=== PATIENT | female | born 1945 | race Caucasian/White ===

== ENCOUNTER 2017-07-30 10:30 | Outpatient (RCR) | payer MEDICARE, BC ==
[2017-07-29 13:08] VITALS: BP 157/77
[2017-07-29 13:22] LABS: PLATELET COUNT, AUTOMATED 222 K/uL (150-450)
[~2017-07-30 10:30] MED LIST: ACE3 PO; ANAS1TAB35 PO; AZIT-17 PO; CHOL10005 PO; KET10 PO; LOR5/325 PO; PER PO; WARF4TAB47 PO
[2017-07-30 10:42] VITALS: BP 156/72
--- NOTE | 2017-07-30 10:45 | ONC Progress Note - NP.Halsey ---
Patient History Date of Service Jul 30, 2017 Reason For Visit/HPI Patient called the clinic yesterday to report that she was having increasing fatigue and lack of interest in any activity. She was not sure that she felt particularly depressed but certainly has had a significant decrease in activity. She was concerned that possibly her changes were related to current medication with Arimidex. Over the phone I discussed that I would like to see her but prior to that I would like to have a TSH result if one had not been done recently by primary care provider. Patient called her primary and it was noted that it has not been completed so she she came to the cancer center yesterday and had labs drawn. Patient is here today for follow-up of labs and to review her decrease of activity and possible relation with her aromatase inhibitor. TSH was within normal limits as well as CBC and her chemistry panel. Patient shows that she has given up volleyball because it is too difficult to separate the poles up, pickle ball because she just doesn't feel like going, walking with her friend because it either Windy, or cold, going out on Wednesday nights to the [employer] club as she previously did because she just is not interested, and several other activities. She has gained approximately 10 pounds thought to be related to inactivity, which is depressing because she worked very hard to lose initial 60 pounds and to keep it off. She has discussed these issues with multiple friends. She shares that previously to get the weight off she was on a stimulant , and questions if she could try this again. I encouraged her to make some other changes 1st such as increasing her activity and holding the Arimidex for 2 weeks to see if there are changes. We also discussed possibly changing her Arimidex to Femara to see if she might have better toleration. In review of my notes patient complained of fatigue in February and this has been ongoing. We also discussed possibly starting a low dose Effexor to see if it would make changes. Problem List (1) Fatigue (2) Breast cancer, left (3) FH: esophageal cancer (4) FH: uterine cancer Oncology History Ms Rivero is a healthy female who was diagnosed at age 71 with early stage, node-negative, ER positive, HER2/josep normal left-sided breast cancer. Patient has transferred her care to Dr. Watkins from Dr. Kenyon who has transitioned back to [facility]. Her cancer was discovered in September on routine mammogram findings during a workup for kidney transplant donation to her . 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 It invades into the adipose tissue and skeletal muscle and she underwent a lumpectomy by Dr. Hester, requiring some skeletal muscle being taken. Final pathology showed poorly differentiated invasive ductal carcinoma. Two sentinel lymph nodes were negative. This was a pT1 pN0 MX. Ki-67 was high at 23. HER2/josep was equivocal, but then negative by FISH. Fortunately, her Oncotype DX score was extremely low at 8, in the low risk category. Patient was started on external beam radiotherapy to the breast tissue on 11/10/2016 and completed treatment on 12/28/2016 to a therapeutic dose of 6040 cGy completing 33 out of 33 treatments. Patient was started on Arimidex after completion of radiation therapy December 2016. She is scheduled to complete at least 5 years although the current recommendations are leaning towards 10 years at this time. Adjuvant radiotherapy was completed 12/28/2016 to a therapeutic dose of 6040 cGy with completion of 33 out of 33 treatments. Bone density on 03/10/2017 was normal Yearly mammograms are recommended, patient is due in August Medical History Family History: FH: esophageal cancer FATHER FH: uterine cancer Paternal grandmother Psychosocial History Social History She is and retired Alcohol History She denies abuse Smoking History: No Medications and Allergies Active Scripts Letrozole (LETROZOLE) 2.5 Mg Tablet, 2.5 MG PO DAILY for 30 Days, #30 TAB 9 Refills Prov:MARJORIE LEE BODY MECHANIC APPRENTICE-BC, ONC 07/30/17 Azithromycin (Z-PACK) 250 Mg Tablet, 0 PO QDAY, #6 DOSE-PACK Prov:MARJORIE LEE BODY MECHANIC APPRENTICE-BC, ONC 03/16/17 Hydrocodone Bit/Acetaminophen (HYDROCODON-ACETAMINOPHEN 5-325) 1 Each Tablet, 1 EACH PO Q4-6H Y for PAIN, #30 TAB Prov:CONRAD HESTER MD 10/06/16 Reported Medications Cholecalciferol (Vitamin D3) (VITAMIN D3) 1,000 Unit Tablet, 92848 UNIT PO QWEEKF, TAB 01/26/17 Cholecalciferol (Vitamin D3) (VITAMIN D3) 1,000 Unit Tablet, 3000 UNIT PO DAILY , TAB 01/26/17 Acetaminophen/Codeine (TYLENOL #3 (OR EQUIV)) 1 Ea Tab, 1 EA PO PRN, TAB 10/13/16 Discontinued Scripts Anastrozole (ARIMIDEX) 1 Mg Tablet, 1 MG PO DAILY, #90 TAB 3 Refills Prov:MARJORIE LEE BODY MECHANIC APPRENTICE-BC, ONC 12/14/16 Allergies: Coded Allergies: Penicillins (Verified Allergy, Mild, 05/02/14) cephalexin (Verified Allergy, Mild, 05/02/14) sulfamethoxazole (Verified Allergy, Mild, 05/02/14) trimethoprim (Verified Allergy, Mild, 05/02/14) Review of System/Physical Exam Review of Systems All Systems Reviewed/Normal: Yes, Except as Noted Hematologic: Positive for Fatigue Psychiatric: Anxiety (patient that she does have some anxiety regarding the the upcoming mammogram in August because of her most recent mammogram been reported in a letter to her house that it was abnormal with concerns. In review the mammogram had no real concern but was noted for thickening status post radiation therapy giving it a BI-RADS 3), Depression Physical Exam Vital Signs Temperature: 97.3 Pulse: 50 BP Systolic: 157 BP Diastolic: 77 Respiratory Rate: 16 O2 SAT: 97 O2 Delivery: Height (inches) 65.00 Weight lb: 168 Weight oz: Weight Kg (Stef): Pain: 0 ECOG Score: 1 General: Stable, Well Developed, Well Nourished, Not In Acute Distress Psychiatric: Mood appears normal, Affect appears normal, Other (patient does share some activities that could suggest low grade depression.) Diagnostic Studies Diagnostic Studies Laboratory Laboratory Tests 07/29/17 13:00 Laboratory Tests 07/29/17 13:00: White Blood Count 5.5, Red Blood Count 5.15, Hemoglobin 15.7, Hematocrit 46.5, Mean Corpuscular Volume 90.2, Mean Corpuscular Hemoglobin 30.5, Mean Corpuscular Hemoglobin Concent 33.8, Red Cell Distribution Width 13.9, Platelet Count 222, Mean Platelet Volume 7.7, Neutrophils (%) (Auto) 59.1, Lymphocytes (% ) (Auto) 29.6, Monocytes (%) (Auto) 9.0, Eosinophils (%) (Auto) 1.8, Basophils ( %) (Auto) 0.5, Nucleated RBC Relative Count (auto) 0.1, Neutrophils # (Auto) 3.3 , Lymphocytes # (Auto) 1.6, Monocytes # (Auto) 0.5, Eosinophils # (Auto) 0.1, Basophils # (Auto) 0.0, Nucleated RBC Absolute Count (auto) 0.00, Sodium Level 140, Potassium Level 3.9, Chloride Level 103, Carbon Dioxide Level 27, Blood Urea Nitrogen 19, Creatinine 0.80, Glomerular Filtration Rate Calc > 60.0, Random Glucose 87, Calcium Level 9.6, Total Bilirubin 0.5, Aspartate Amino Transf (AST/SGOT) 25, Alanine Aminotransferase (ALT/SGPT) 34, Alkaline Phosphatase 96, Total Protein 7.1, Albumin 4.3, Thyroid Stimulating Hormone (TSH ) 1.45 Assessment and Plan Assessment & Plan Patient is a pleasant 72-year-old female with early stage, node negative, ER positive, HER2/josep normal left-sided breast cancer. Patient is status post external beam radiotherapy to the left breast and axilla. Patient completed treatment between 11/10/2016 and 12/28/2016 to a therapeutic dose of 6040 cGy completing 33 out of 33 treatments with minimal side effects that have resolved. Patient was started on Arimidex post completion of radiation therapy in January 2017. Current recommendation is 5+ years. Bone density completed in February was within normal limits Labs reviewed today are completely within normal limits. TSH is 1.45 Patient is scheduled for a diagnostic mammogram August and will follow with Dr. Galvan, radiation oncology to review. Patient is presenting with increased fatigue and lack of interest in previous activities. We spent essentially the whole office visit reviewing side effects of aromatase inhibitors, indications of depression, and plan of care. Patient will currently stop her Arimidex for 2 weeks and we'll give me a call on WednesdayAugust 13 to report how she is feeling. I will send a prescription to [facility] pharmacy for Catie with the thought that we might change her medication to see if she has better toleration. This also allows time for prior authorization if it is needed and to let the patient know what her ail-as-siffiy expense will be. If it is not approved or the bdi-ds-ahuuwy expense is significantly different from Arimidex, we could also try Aromasin. Patient agreed with this plan of care. She will also try to restart some of her activities such as renewing her membership at the [employer] so she can restart playing pickle ball. She is also scheduled to start dance classes 3 days a week and we'll make an effort to be present at each one. Plan: Stop Arimidex and send prescription to [facility] for Catie Patient to be contacted in 2 weeks, Wednesday, August 13 to discuss how she is feeling. Mammogram is scheduled for September 10. Patient will be contacted with results. Patient will follow in 4 months with CBC D, CMP and follow with . I personally spent a total of 20 minutes. Of that 15 minutes was counseling/ coordination of patient's care. See my note above for details. Copies to: OMI ELLIS MD, NANCY J BODY MECHANIC APPRENTICE-BC, ONC Jul 30, 2017 10:45
[2017-07-30] MEDS ORDERED: LETR2.5T4 PO (11:27)
[2017-08-31] MEDS ORDERED: VENL37.53 PO (14:22)
--- NOTE | 2017-09-13 10:18 | RADIOLOGY IMAGING REPORT ---
FACILITY: [facility] [place] PATIENT NAME: REJI CASTRO : [id number] MR: [id number] V: [id number] EXAM DATE: [id number] ORDERING PHYSICIAN: MARJORIE LEE TECHNOLOGIST: Saritha Yang PROCEDURE:BILATERAL DIAGNOSTIC DIGITAL MAMMOGRAM WITH CAD ASSISTED INTERPRETATION AND 3D BREAST TOMOSYNTHESIS. COMPARISON:Prior mammograms dated 03/10/17, 09/25/16, 09/24/16 and 09/09/16. INDICATIONS:PRIOR HISTORY OF LEFT BREAST CANCER. FINDINGS: A small amount of fibroglandular tissue is seen throughout the breasts. Again noted is an area of architectural distortion and scarring in the upper outer quadrant of the left breast in zone 3 in the site of the previous lumpectomy where there is an adjacent surgical clip. There is increased density throughout the left breast and skin thickening consistent with post-radiation changes. There is no evidence of malignant appearing mass or calcification in either breast at this time. DIAGNOSTIC CATEGORY 2--BENIGN FINDING. RECOMMENDATIONS: ROUTINE MAMMOGRAM AND CLINICAL EVALUATION. IMPRESSION: BI-RADS 2: No significant abnormality identified at this time. Dictated by: Anahi Wiseman M.D. on 09/10/2017 at 15:39 Transcribed by: MELY on 09/12/2017 at 17:14 Approved by: Anahi Wiseman M.D. on 09/13/2017 at 9:49 [facility]
== END 2017-10-27 ==
LOC: ONC 10:30
PROVIDERS: ATTEND Nurse Practitioner Family
DX: Z85.3 Personal history of malignant neoplasm of breast (principal); E55.9 Vitamin D deficiency, unspecified; Z92.3 Personal history of irradiation; R53.83 Other fatigue; Z79.899 Other long term (current) drug therapy
CPT/HCPCS: 36415; 77062; 84443; 85025; G0204; G0463; 77066; 82040; 82247; 82310; 82374; 82435; 82565; 82947; 84075; 84132; 84155; 84295; 84450; 84460; 84520; 99212

== ENCOUNTER 2017-11-15 09:24 | Outpatient (RCR) | payer MEDICARE, BC ==
[2017-11-12 10:41] LABS: PLATELET COUNT, AUTOMATED 189 K/uL (150-450)
[~2017-11-15 09:24] MED LIST changes: +LETR2.5T4 PO; +VENL37.53 PO
[2017-11-15 09:31] VITALS: BP 129/68
--- NOTE | 2017-11-16 16:40 | ONCOLOGY FOLLOW UP NOTE ---
EVENT DATE: November 15, 2016 CHIEF COMPLAINT/REASON FOR VISIT Ms. Rivero is a pleasant 72-year-old female, with stage I ER/AZ positive breast cancer, here for followup on Femara. HISTORY OF PRESENT ILLNESS Rhianna returns. Overall she is feeling quite well. Her cancer was discovered in September 2016 on routine mammography during a workup for a kidney transplant donation to her . 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 Her Oncotype DX score was extremely low at 8. This was a pT1 pN0 M0 tumor. The tumor did invade adipose tissue as well as skeletal muscle, and she underwent a successful lumpectomy with some skeletal muscle being taken. She received radiation as well given the chest wall involvement. She started Arimidex, but had considerable side effects with fatigue, anhedonia and depression. She switched to Femara in approximately July 2017 and is tolerating this extremely well. MEDICATIONS 1. Femara. 2. Venlafaxine. 3. Calcium and vitamin D. 4. Vicodin as needed for pain. PAST MEDICAL HISTORY Stage I left-sided breast cancer. FAMILY HISTORY Remarkable for uterine and esophageal cancer. The uterine cancer as in a maternal grandmother. SOCIAL HISTORY Patient is and takes care of her with Parkinson's disease. Nonsmoker. REVIEW OF SYSTEMS CONSTITUTIONAL: No issues with Femara. HEENT: No headache or visual changes. CARDIOVASCULAR: No chest pain, dyspnea on exertion or edema. RESPIRATORY: No shortness of breath, wheeze, cough. GASTROINTESTINAL: No nausea, vomiting, diarrhea or constipation. GENITOURINARY: No dysuria or hematuria. BREASTS: No concerning lumps or bumps ENDOCRINE: No heat or cold intolerance. PSYCHIATRIC: No anxiety or depression currently. She did have some anhedonia with her first aromatase inhibitor (Arimidex). IMMUNOLOGIC: No issues with infection. HEMATOLOGIC/LYMPHATIC: No concerning lumps or bumps. The remainder of the 14-point review of systems is otherwise negative. PHYSICAL EXAMINATION VITAL SIGNS: Blood pressure 129/68, pulse 48, respiratory rate 16, temperature 96.7 Fahrenheit, oxygen saturation 96% on room air. Pain 0/10, fatigue 0/10. GENERAL: In stable condition, resting comfortably in the chair. HEENT: Normocephalic, atraumatic. RESPIRATORY: No respiratory distress. BREASTS: Exam deferred today. EXTREMITIES: No clubbing, cyanosis or edema. SKIN: No concerning rashes. Remainder of physical exam otherwise unremarkable. IMPRESSION AND PLAN Rhianna is a very pleasant 72-year-old female with early stage node negative ER/ AZ positive breast cancer of the left breast. We finished radiation. She did not tolerate Arimidex and we switched to Femara in approximately July of 2017. She is tolerating this extremely well. She notes no symptoms from it whatsoever. We discussed the consideration of taking it beyond five years to 10 years. We will make a decision at that time based on her side effects from it. Overall she is tolerating it well currently. I answered all of her many questions. Billing: Return visit level 4. Total time 30 minutes, counseling time 20. MTDD
== END 2017-12-15 09:27 | disposition home or self-care (01) ==
LOC: ONC 09:24
PROVIDERS: ATTEND Nurse Practitioner Family
DX: C50.912 Malignant neoplasm of unspecified site of left female breast (principal); Z17.1 Estrogen receptor negative status [ER-]; Z92.3 Personal history of irradiation; R53.83 Other fatigue; R45.84 Anhedonia
CPT/HCPCS: 36415; 85025; G0463; 82040; 82247; 82310; 82374; 82435; 82565; 82947; 84075; 84132; 84155; 84295; 84450; 84460; 84520; 99212

== ENCOUNTER → 2017-11-25 | Outpatient (CLI) | payer MEDICARE, BC ==
--- NOTE | 2017-11-25 14:24 | EKG ---
FACILITY: [facility] [place] PATIENT NAME: REJI CASTRO : [id number] MR: [id number] V: [id number] EXAM DATE: ORDERING PHYSICIAN: OMI LE TECHNOLOGIST: ERNA Joshua Reason : PREOP-EYE DUCT Blood Pressure : / mmHG Vent. Rate : 058 BPM Atrial Rate : 058 BPM P-R Int : 202 ms QRS Dur : 158 ms QT Int : 452 ms P-R-T Axes : 051 -56 -03 degrees QTc Int : 443 ms Sinus bradycardia with sinus arrhythmia Right bundle branch block Left anterior fascicular block Bifascicular block Abnormal ECG When compared with ECG of 06-OCT-2016 07:58, No significant change was found Referred By: REY Confirmed By:
== END ==
LOC: RESP 14:15
PROVIDERS: ATTEND Anesthesiology
DX: Z01.810 Encounter for preprocedural cardiovascular examination (principal); H04.203 Unspecified epiphora, bilateral; H04.19 Other specified disorders of lacrimal gland; R94.31 Abnormal electrocardiogram [ECG] [EKG]
CPT/HCPCS: 93005

== ENCOUNTER → 2018-03-10 | Outpatient (CLI) | payer MEDICARE, BC ==
--- NOTE | 2018-03-10 14:29 | RADIOLOGY IMAGING REPORT ---
FACILITY: [facility] - [place] PATIENT NAME: Ismael Rivero : 1945 MR: [id number] V: [id number] EXAM DATE: ORDERING PHYSICIAN: MARJORIE LEE TECHNOLOGIST: Location: [facility] [place] Patient: Ismael Rivero : 1945 Visit/Account:[id number] Date of Sevice: 03/10/2018 DEXA Scan Clinical history: Postmenopausal, history of cancer. Comparison: DEXA scan from 03/10/2017. LUMBAR SPINE: The bone mineral density (BMD) measured from L1-L4 correlates with a Z-score of 2.5 and a T-score of 1.1 which is Normal as defined by the World Health Organization. The corresponding risk of fracture in the lumbar spine is Not increased compared with a young adult reference population. This value mcmillan s decrease by 0.5 % since the prior study. More than 5% change is considered significant. HIP: Bone mineral density (BMD) measured in the LEFT total hip region correlates with a Z-score 0.9 and a T-score of -0.4 which is normal as defined by the World Health Organization. The corresponding risk of fracture in the hip is Not i ncreased compared to a young adult reference population. This value has decrease by 1.8 % since the p rior study. More than 5% change is considered significant. T score left femoral neck -0.3 Bone mineral density (BMD) measured in the Femoral Neck region measures 1.000 g/cm?. IMPRESSION: 1. Lumbar spine: Normal. There has been 0.5% decrease in the bone mineral density since the previou s exam. 2. Left Total Hip: Normal. There has been 1.8% decrease in the bone mineral density since the previ ous exam. 3. Femoral Neck: Bone Mineral Density is 1.000 g/cm? The next DEXA scan of this patient should include the following sites: L1-L4 and the left hip. FRAX? WHO Fracture Risk Assessment Tool link: <http://www.shef.ac.uk/FRAX/tool.jsp?locationValue=9> PLEASE NOTE: 1) The World Health Organization defines low BMD as follows: T-score Normal > -1 Osteopenia < -1 and > -2.5 Osteoporosis < -2.5 without fractures Established osteoporosis < -2.5 with fractures 2) In general, you may wish to consider: Diagnosis Treatment Follow-up DEXA Normal BMD Prevention 2-3 years Osteopenia Prevention/therapy 1-2 years Osteoporosis Therapy Yearly 3) Fracture risk estimated from the T-score is more accurate for vertebral fractures (often spontane ous) than for hip fractures. Report Dictated By: Anahi Wiseman MD at 03/10/2018 2:21 PM Report E-Signed By: Anahi Wiseman MD at 03/10/2018 2:22 PM WSN:[email or web address]
== END ==
LOC: MAMO 13:24
PROVIDERS: ATTEND Nurse Practitioner Family
DX: C50.912 Malignant neoplasm of unspecified site of left female breast (principal); Z17.0 Estrogen receptor positive status [ER+]; Z85.3 Personal history of malignant neoplasm of breast; C80.1 Malignant (primary) neoplasm, unspecified; Z78.0 Asymptomatic menopausal state
CPT/HCPCS: 77080

== ENCOUNTER 2018-05-16 12:27 | Outpatient (RCR) | payer MEDICARE, BC ==
[2018-05-11 11:20] VITALS: BP 136/82
[2018-05-11 11:26] LABS: PLATELET COUNT, AUTOMATED 197 K/uL (150-450)
[2018-05-16] MEDS ORDERED: LETPT GT (12:33)
[2018-05-16 12:34] VITALS: BP 140/80
--- NOTE | 2018-05-17 23:03 | ONCOLOGY FOLLOW UP NOTE ---
EVENT DATE: May 16, 2018 CHIEF COMPLAINT/REASON FOR VISIT Ms. Rivero is a pleasant, 72-year-old female with stage I, ER/MI-positive breast cancer, here for followup on Femara. HISTORY OF PRESENT ILLNESS Ismael returns. Overall, she is feeling quite well. Her cancer was discovered in September 2016 on routine mammography during a workup for a kidney transplant donation to her . 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 Fortunately, her Oncotype DX score was extremely low at 8, and we caught this early. This was a [id number] tumor. The tumor did invade adipose tissue as well as skeletal muscle, and she underwent a successful lumpectomy with some skeletal muscle being taken, followed by radiation therapy involving the chest wall. She started Arimidex, but had considerable side effects including fatigue, anhedonia, and depression. We switched the Femara in approximately July 2017 , and she is tolerating this well. Her labs look extremely well, and we are only getting imaging as needed. She feels great, but would like to know if she could become eligible again to give a kidney to her . MEDICATIONS 1. Femara. 2. Venlafaxine. 3. Calcium and vitamin D. 4. Vicodin as needed for pain. PAST MEDICAL HISTORY Stage I left-sided breast cancer. FAMILY HISTORY Remarkable for uterine and esophageal cancer. The uterine cancer as in a maternal grandmother. SOCIAL HISTORY Patient is and takes care of her with Parkinson disease. Nonsmoker. REVIEW OF SYSTEMS CONSTITUTIONAL: No issues with Femara. HEENT: No headache or visual changes. CARDIOVASCULAR: No chest pain, dyspnea on exertion, or edema. RESPIRATORY: No shortness of breath, wheeze, cough. GASTROINTESTINAL: No nausea, vomiting, diarrhea, or constipation. GENITOURINARY: No dysuria or hematuria. BREASTS: No concerning lumps or bumps. ENDOCRINE: No heat or cold intolerance. PSYCHIATRIC: No anxiety or depression currently. She did have some anhedonia with her first aromatase inhibitor (Arimidex). IMMUNOLOGIC: No issues with infection. HEMATOLOGIC/LYMPHATIC: No concerning lumps or bumps. The remainder of the 14-point review of systems is otherwise negative. PHYSICAL EXAMINATION VITAL SIGNS: Blood pressure 140/80, pulse 60, respiratory rate 16, temperature 97.9 Fahrenheit, oxygen saturation 96% on room air. Weight 76.7 kg. Pain zero/ 10. Fatigue zero/10. GENERAL: Stable condition, resting comfortably in the chair. HEENT: Normocephalic, atraumatic. CARDIOVASCULAR: Regular rate and rhythm. Normal S1, S2. LUNGS: Clear to auscultation bilaterally. ABDOMEN: Soft, nontender. EXTREMITIES: No clubbing, cyanosis, or edema. Remainder of physical exam otherwise unremarkable. IMPRESSION AND PLAN Ismael is a very pleasant 72-year-old female with: 1. Early stage, node-negative, ER/MI-positive breast cancer of the left breast. She did not tolerate Arimidex and switched to Femara in approximately July 2017. She is nearing the two-year anne and will continue to get annual mammograms unless we see an abnormality warranting more frequent mammograms. We have previously discussed the consideration of taking Femara beyond five years to 10 years, and she is tolerating it well. Overall, no considerable issues or changes. 2. Psychosocial issues with regards to her 's potential kidney transplant. Often transplant centers will have a requirement for the donor to be cancer-free for a particular period of time. She has been cancer-free since September 2016. If we decide to move forward with evaluation for her to be a donor, which I believe is reasonable, then I would want to get a bone scan and a CT scan as well as additional labs to make sure that she does not have any occult disease that we are missing. I answered all of her questions today. BILLING Return visit level 4. Total time 30 minutes, counseling time 20. MESHAD
== END 2018-05-20 09:36 | disposition home or self-care (01) ==
LOC: ONC 12:27
PROVIDERS: ATTEND Internal Medicine
DX: Z85.3 Personal history of malignant neoplasm of breast (principal); Z92.3 Personal history of irradiation; R53.83 Other fatigue; R45.84 Anhedonia
CPT/HCPCS: 36415; 82306; 85025; G0463; 82040; 82247; 82310; 82374; 82435; 82565; 82947; 84075; 84132; 84155; 84295; 84450; 84460; 84520; 99212

== ENCOUNTER → 2018-10-04 | Outpatient (CLI) | payer MEDICARE, BC ==
[~2018-10-04] MED LIST changes: +ANAS1TAB12 PO; -ANAS1TAB35 PO; +LETPT GT
[2018-10-04 14:25] LABS: PLATELET COUNT, AUTOMATED 191 K/uL (150-450)
--- NOTE | 2018-10-04 16:25 | RADIOLOGY IMAGING REPORT ---
FACILITY: [facility] - [place] PATIENT NAME: REJI CASTRO : [id number] MR: [id number] V: [id number] EXAM DATE: ORDERING PHYSICIAN: ZOEY BUCKLEY TECHNOLOGIST: Saritha Yang PROCEDURE:BILATERAL DIAGNOSTIC DIGITAL MAMMOGRAM WITH CAD ASSISTED INTERPRETATION & 3D TOMOSYNTHESIS COMPARISON:Prior mammograms 09/10/17, 03/10/17, 09/25/16, 09/24/16. INDICATIONS:HX BREAST CA 2016 FINDINGS: The breasts are almost entirely fatty. There are postsurgical changes with architectural distortion in the upper outer quadrant of the Left breast from previous lumpectomy. The parenchymal pattern throughout the breasts has remained stable allowing for difference in mammographic technique & patient positioning. There is no evidence of malignant appearing mass, malignant appearing calcifications or other secondary sign of malignancy in either breast. DIAGNOSTIC CATEGORY 2--BENIGN FINDING. RECOMMENDATIONS: ROUTINE MAMMOGRAM AND CLINICAL EVALUATION. IMPRESSION: BIRADS 2: Benign finding. No significant abnormality is seen. Dictated by: Anahi Wiseman M.D. on 10/04/2018 at 14:50 Transcribed by: SHAY on 10/04/2018 at 15:34 Approved by: Anahi Wsieman M.D. on 10/04/2018 at 16:24 [facility]
== END ==
LOC: MAMO 12:51
PROVIDERS: ATTEND Internal Medicine
DX: C50.919 Malignant neoplasm of unspecified site of unspecified female breast (principal)
CPT/HCPCS: 36415; 77062; 77066; 82040; 82247; 82310; 82374; 82435; 82565; 82947; 84075; 84132; 84155; 84295; 84450; 84460; 84520; 85025

== ENCOUNTER 2018-10-10 09:14 | Outpatient (RCR) | payer MEDICARE, BC ==
[2018-10-10 11:55] VITALS: BP 153/83
--- NOTE | 2018-10-11 06:07 | ONCOLOGY FOLLOW UP NOTE ---
EVENT DATE: October 10, 2018 CHIEF COMPLAINT Followup for breast cancer. HISTORY OF PRESENT ILLNESS Patient is a 73-year-old female who was seen today in followup for stage I left breast cancer. She continues on Femara, which she is tolerating fairly well. She does note some joint pain, but is trying to remain active. She denies hot flashes and generally feels well. Her , who is on dialysis, was on the kidney transplant list. She was hopeful to be able to donate her kidney; however, he had an IA last April and is now on Plavix, so has "fallen to the bottom of the list." She denies any other breast cancer-related complaints. 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 The tumor invaded the adipose tissue as well as the skeletal muscles, stage I (pT1 pN0 M0). Underwent left lumpectomy. Completed adjuvant radiation in December 2016. Began Arimidex in January 2017 and switched to Femara in July 2017. MEDICAL HISTORY Stage I left breast cancer, September 2016. SURGICAL HISTORY Left lumpectomy with sentinel lymph node biopsy, September 2016. FAMILY HISTORY Positive for uterine and esophageal cancer. Uterine cancer was in her maternal grandmother. SOCIAL HISTORY Patient is . Her has Parkinson's and is on dialysis. She does not smoke. REVIEW OF SYSTEMS A 12-point review of systems is performed and is negative except as stated above. PHYSICAL EXAMINATION VITAL SIGNS: Blood pressure 153/83, pulse 68, respirations 16, temperature 97.0, O2 saturation 94%. GENERAL: Patient is a well-developed, well-nourished female in no acute distress. HEAD: Normocephalic, atraumatic. EYES: Sclerae anicteric. MOUTH: Moist mucous membranes. No lesions. NECK: Supple. No palpable adenopathy. BREASTS; Status post left lumpectomy with a well-healed incision. No evidence of recurrence. Right breast is without masses. LUNGS: Clear bilaterally. CARDIOVASCULAR: Heart rate regular, 68 per minute, without murmur, S3, or S4. ABDOMEN: Soft, nontender, with active bowel sounds. No organomegaly. EXTREMITIES: No edema. NEUROLOGIC: Nonfocal. LABORATORY CBC on 10/04/2018 showed a WBC of 5.3, hemoglobin 15.4, hematocrit 46.3, platelets 191,000. CMP was completely within normal limits. IMPRESSION AND PLAN The patient is a 73-year-old female with stage I, node-negative, ER/DE-positive breast cancer of the left breast. Underwent lumpectomy followed by adjuvant radiation, completed in December 2016. Began Arimidex, which she did not tolerate well. Switched to Femara in July 2017. 1. Breast cancer. No signs or symptoms of disease recurrence. She wondered if she should switch back to the Arimidex, but we reviewed that they were very comparable drugs, and that as long as she is tolerating the Femara, would recommend that she continue this. She does have some joint pain, but has tried to remain active. 2. Breast surveillance. Bilateral mammogram on 10/04/18 was BI-RADS category 2. This will be repeated in September 2019. 3 . Bone health. Bone density on 03/10/18 was within normal limits. This will be repeated in February 2020. She will continue vitamin D as well as weightbearing exercises. 4. Follow up in six months for continued care, earlier if there is a problem. MESHAD
== END 2018-11-28 12:44 | disposition home or self-care (01) ==
LOC: ONC 09:14
PROVIDERS: ATTEND Internal Medicine
DX: C50.912 Malignant neoplasm of unspecified site of left female breast (principal); Z92.3 Personal history of irradiation; R53.83 Other fatigue; R45.84 Anhedonia; C80.1 Malignant (primary) neoplasm, unspecified; Z79.811 Long term (current) use of aromatase inhibitors; Z78.0 Asymptomatic menopausal state; Z85.3 Personal history of malignant neoplasm of breast
CPT/HCPCS: 99212

== ENCOUNTER 2019-04-10 09:37 | Outpatient (RCR) | payer MEDICARE, BC ==
[2019-04-10 09:40] VITALS: BP 148/65
[2019-04-10 09:55] LABS: PLATELET COUNT, AUTOMATED 187 K/uL (150-450)
[2019-04-10] MEDS ORDERED: NAPR220C12 PO (11:37)
--- NOTE | 2019-04-11 07:25 | [facility] ONCOLOGY NOTE ---
EVENT DATE: April 10, 2019 CHIEF COMPLAINT/REASON FOR VISIT Ms. Rivero is a pleasant 73-year old female with a history of stage I breast cancer here for followup. HISTORY OF PRESENT ILLNESS Ismael returns. She continues on Femara, which she is tolerating fairly well with some mild joint pain. Overall, she has more good days than bad days. She denies hot flashes. She had considerable emotional lability when she was on Arimidex but this has not been an issue with Femara. Unfortunately, she is going into a lot of stress right now as her , who is on chronic dialysis, is considering discontinuing dialysis and transitioning to hospice and this is very hard for her. She is struggling to accept his wishes. He did go to dialysis today but it was a struggle. Patient's had myocardial infarction last April and that has affected his candidacy for transplant. The patient has no breast cancer related concerns. No signs of relapse. 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 The tumor invaded the adipose tissue as well as the skeletal muscles, stage I (pT1 pN0 M0). Underwent left lumpectomy. Completed adjuvant radiation in December 2016. Began Arimidex in January 2017 and switched to Femara in July 2017. MEDICAL HISTORY Stage I left breast cancer, September 2016. SURGICAL HISTORY Left lumpectomy with sentinel lymph node biopsy, September 2016. FAMILY HISTORY Positive for uterine and esophageal cancer. Uterine cancer was in her maternal grandmother. SOCIAL HISTORY Patient is . Her has Parkinson's and is on dialysis. She does not smoke. REVIEW OF SYSTEMS CONSTITUTIONAL: No fevers, chills, significant weight change. HEENT: No headache or visual changes. CARDIOVASCULAR: No chest pain, dyspnea on exertion, or edema. RESPIRATORY: No shortness of breath, wheeze, cough. GASTROINTESTINAL: No nausea or vomiting. GENITOURINARY: No dysuria or hematuria. PSYCHIATRIC: Positive high stress and anxiety. She did have more of these symptoms when she on Arimidex. The remainder of the 14-point review of systems is otherwise negative. PHYSICAL EXAMINATION VITAL SIGNS: Blood pressure 148/65, pulse 53, respiratory rate 16, temperature 98.7 Fahrenheit, oxygen saturation 92% on room air. Weight 78.7 kg. Pain 0/10. Fatigue 4/10. GENERAL: Stable condition, resting comfortably in the chair. HEENT: Normocephalic, atraumatic. CARDIOVASCULAR: Regular rate and rhythm. LUNGS: Clear to auscultation bilaterally. ABDOMEN: Soft, nontender. EXTREMITIES: No clubbing, cyanosis or edema. LYMPHATIC: No appreciable cervical, supraclavicular or axillary adenopathy. BREASTS: Unremarkable. IMPRESSION AND PLAN Ms. Rivero is a pleasant 73-year-old female with the followin. Stage I, node negative, ER/[place] positive breast cancer of the left breast, status post lumpectomy, adjunct radiation therapy and now on hormonal therapy. No prior history of chemotherapy. We discussed options including switching to Aromasin versus going back to Arimidex (bad idea given the psychiatric side effects) versus continuing with Femara. Overall, she thinks her side effects are mild so we plan to continue the Femara at this time. 2. Breast surveillance. Due for mammogram every September. 3. Bone health. Should get bone density every two to three years. February 2021 would be acceptable. Continue vitamin D and exercise. Should have follow up every six months while on hormonal therapy. I answered all of her questions today. BILLING Return visit level 3. Total time 20 minutes, counseling time 15. MTDD
== END 2019-04-19 15:46 | disposition home or self-care (01) ==
LOC: SPU 09:37
PROVIDERS: ATTEND Internal Medicine
DX: C50.912 Malignant neoplasm of unspecified site of left female breast (principal); Z79.811 Long term (current) use of aromatase inhibitors; Z17.0 Estrogen receptor positive status [ER+]
CPT/HCPCS: 36415; 85025; G0463; 82040; 82247; 82310; 82374; 82435; 82565; 82947; 84075; 84132; 84155; 84295; 84450; 84460; 84520; 99212